=== PATIENT | female | born 1990 | race African-American/Black ===

== ENCOUNTER 2017-12-19 22:12 | Observation (INO) | payer MEDICAID ==
[~2017-12-19] VITALS: Ht 170.2 cm; Wt 93.0 kg
[~2017-12-19 22:12] MED LIST: DOCU-138 MT; IRON-1 MT; PNV1TABL76 MT
[2017-12-19] MEDS ORDERED: LACTATED RINGERS 1,000 ML IV SCH (22:45)
[2017-12-19] MEDS ORDERED: ACETAMINOPHEN 500MG TABLET PO SCH (22:45)
[2017-12-19] MEDS ORDERED: CEFAZOLIN 2,000 MG in DEXT 5% WATER 100 ML IV SCH (23:00)
== END 2017-12-20 01:00 | disposition home or self-care (01) ==
LOC: L&D 22:12
PROVIDERS: ADMIT Obstetrics & Gynecology; ATTEND Obstetrics & Gynecology
DX: O26.892 Other specified pregnancy related conditions, second trimester (principal); R10.9 Unspecified abdominal pain; Z3A.21 21 weeks gestation of pregnancy
CPT/HCPCS: 96365; G0378; J0690; J7120; 96360; J7060

== ENCOUNTER 2019-03-25 17:50 | Emergency (ER) | payer MEDICAID, OTHER ==
[~2019-03-25] VITALS: Ht 170.2 cm; Wt 84.0 kg
[2019-03-25 18:52] VITALS: BP 120/88
== END 2019-03-25 18:55 | disposition home or self-care (01) ==
LOC: ER 17:50
DX: S83.412A Sprain of medial collateral ligament of left knee, initial encounter (principal); M76.52 Patellar tendinitis, left knee; X58.XXXA Exposure to other specified factors, initial encounter; Y93.89 Activity, other specified; Y92.89 Other specified places as the place of occurrence of the external cause; Y99.8 Other external cause status; Z79.899 Other long term (current) drug therapy
CPT/HCPCS: 99282; L1830